=== PATIENT | female | born 1940 ===

== ENCOUNTER 2018-08-02 07:22 | Day surgery (SDC) | payer MEDICARE ==
[2018-08-01 09:45] VITALS: BMI 30.7
[2018-08-02] MEDS ORDERED: Propofol 10 mg/ml Inj (20 ML) ONE (10:00)
[2018-08-02] MEDS ORDERED: Etomidate 20 mg/10ml Inj IV ONE ×2 (10:00→10:15)
--- NOTE | 2018-08-02 10:00 | CP.SDSHP ---
Same Day Surgery H & P - History Proposed Procedure: COLONSCOPY - Previous Medical/Surgical History Pulmonary: Asthma Endocrine/Metabolic: Thyroid Disease, Other Misc: Other Pain: 4.Moderate Pain - Allergies Allergies: Allergies theophylline Allergy (Verified 08/01/18 09:45) SHORTNESS OF BREATH - Physical Exam General Appearance: N Vital Signs: Vital Signs 08/02/18 07:57 Temperature 98.4 F Pulse Rate 80 Respiratory 18 Rate Blood Pressure 139/79 O2 Sat by Pulse 98 Oximetry Mental Status: Alert & Oriented x3 Neuro: WNL Heart: Other Lungs: Other GI: Other - {Optional Preform as Required} Breast: WNL Abdomen: Other Rectal: Other Integument: WNL : WNL Ortho: WNL ENT: WNL - Impression Pt. Evaluated Today:Candidate for Anesthesia & Procedure: Yes - Date & Time Time: 09:59 Short Stay Discharge - Short Stay Discharge Admitting Diagnosis/Reason for Visit: CHANGE IN BOWEL HABIT Disposition: HOME/ ROUTINE
[2018-08-02] MEDS: Belladonna-Phenobarbital PO ONE (11:15)
[2018-08-02 11:47] VITALS: TEMP 97.8
[2018-08-02 11:49] VITALS: RESP 20; O2SAT 100
[2018-08-02 11:55] VITALS: BP 130/75; PULSE 80
== END 2018-08-02 11:55 | disposition home or self-care (01) ==
LOC: C.ENDO 07:22
PROVIDERS: ATTEND Specialist
DX: K57.30 Diverticulosis of large intestine without perforation or abscess without bleeding (principal); K64.8 Other hemorrhoids; K64.4 Residual hemorrhoidal skin tags; R19.4 Change in bowel habit; R10.9 Unspecified abdominal pain; J45.909 Unspecified asthma, uncomplicated
CPT/HCPCS: 45380; 82948; 88305; J2001; J2704; J2765

== ENCOUNTER 2018-08-07 08:04 | Day surgery (SDC) | payer MEDICARE ==
[2018-08-06 09:33] VITALS: BMI 28.7
[2018-08-07 08:32] VITALS: TEMP 98.4
[2018-08-07] MEDS ORDERED: Lactated Ringer's 500 ML IV ONE ×2 (09:35)
[2018-08-07] MEDS ORDERED: Propofol 10 mg/ml Inj (20 ML) ONE (09:39)
--- NOTE | 2018-08-07 09:44 | CP.SDSHP ---
Same Day Surgery H & P - History Proposed Procedure: EGD Pre-Op Diagnosis: SEE NOTES - Previous Medical/Surgical History Pulmonary: Asthma Endocrine/Metabolic: Diabetes, Other Neuro: Other Pain: 4.Moderate Pain - Allergies Allergies: Allergies theophylline Allergy (Verified 08/01/18 09:45) SHORTNESS OF BREATH SEAFOOD Allergy (Uncoded 08/06/18 09:33) RASH - Physical Exam General Appearance: N Vital Signs: Vital Signs 08/07/18 08:27 Temperature 98.4 F Pulse Rate 81 Respiratory 18 Rate Blood Pressure 138/79 O2 Sat by Pulse 98 Oximetry Mental Status: Alert & Oriented x3 Neuro: Other Heart: WNL Lungs: WNL GI: Other - {Optional Preform as Required} Breast: WNL Abdomen: Other Rectal: Other Integument: WNL : WNL Ortho: Other ENT: WNL - Impression Pt. Evaluated Today:Candidate for Anesthesia & Procedure: Yes - Date & Time Time: 09:45 Short Stay Discharge - Short Stay Discharge Admitting Diagnosis/Reason for Visit: DYSPEPSIA Disposition: HOME/ ROUTINE
[2018-08-07] MEDS ORDERED: Belladonna-Phenobarbital PO ONE (09:46)
[2018-08-07] MEDS ORDERED: Pantoprazole 40 mg EC Tab PO ONE (10:00)
[2018-08-07] MEDS ORDERED: Lidocaine Hydrochloride 5 ML INJ ONE (10:03)
[2018-08-07 10:43] VITALS: O2SAT 100
[2018-08-07 11:00] VITALS: BP 117/70; PULSE 80; RESP 20
== END 2018-08-07 10:58 | disposition home or self-care (01) ==
LOC: C.ENDO 08:04
PROVIDERS: ATTEND Specialist
DX: K30 Functional dyspepsia (principal); K29.70 Gastritis, unspecified, without bleeding
CPT/HCPCS: 43239; 82948; 88305; J2704; J2765; J7120